=== PATIENT | male | born 1940 | race Caucasian/White ===

== ENCOUNTER 2019-08-31 14:55 | Outpatient (CLI) | payer MEDICARE, OTHER ==
[2015-01-01 17:24] VITALS: BP 160/91
--- NOTE | 2019-09-01 08:54 | Diagnostic Imaging Report ---
PATIENT MR#: [id number] PATIENT PATIENT NAME: SOHAIL BOURGEOIS DATE OF : 1940 REFERRING PHYSICIAN: Tessa Lr EXAM DATE: 08/31/2019 ACCESSION NUMBER: [id number] EXAM DESCRIPTION: CT BRAIN W/O CONTRAST CLINICAL HISTORY:CONFUSION, MEMORY CHANGES, AND VISION CHANGES IN RIGHT EYE; PT STATES LOSING VISION IN THE RIGHT EYE FOR 2 WEEKS COMPARISON: No study for comparison is available at the time of interpretation. 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 No intracranial hemorrhage, hydrocephalus, acute parenchymal edema or evident mass. Calvarium: Unremarkable. Sinuses (partially visualized): Left maxillary sinus mucus retention cyst. Intracranial vessels: Atherosclerotic calcification of the anterior and posterior circulation. IMPRESSION: Chronic small vessel ischemic disease more pronounced in the right frontal lobe. No intra cranial hemorrhage or mass. Read by: Dr. Lloyd Pena Transcribed by: Lloyd Pena Transcribed Date: 09/01/2019 8:53:50 AM Electronically signed by: Dr. Lloyd Pena Date signed: 09/01/2019 8:53:50 AM
== END 2019-08-31 15:00 ==
LOC: RAD 14:55
PROVIDERS: ATTEND Nurse Practitioner Family
DX: H53.8 Other visual disturbances (principal); R41.82 Altered mental status, unspecified
CPT/HCPCS: 70450